=== PATIENT | female | born 1950 | race Caucasian/White ===

== ENCOUNTER → 2017-04-03 | Outpatient (CLI) | payer BC ==
[~2017-04-03] MED LIST: CALCIUM + D 6001 TA1 PO; CENTRUM SILVER1 EAC2 PO; LORTAB 7.5-5001 TAB PO; MOBIC PO; SIMVASTATIN5 MG PO
--- NOTE | ~2017-04-03 | MR104 ---
[facility] A Service of [facility] RADIOLOGY TEXT RESULTS PATIENT: GREG ORO LOCATION: [facility] : 50 UNIT #: [id number] AGE: [address]: Srini Garcia MD SEX: F ORDER DR: [id number] [facility] [address] [place], [place] [address] [id number] O MR#: [id number] Acc #: [id number] NAME: GREG ORO : 1950 SEX: F STUDY DATE/TIME: 04/03/2017 7:06 UNIT: [facility] ROOM: STUDY DESCRIPTION: MR Knee Wo Contrast Rt Attending Physician: Srini Garcia M.D. Referring Physician: Srini Garcia M.D. Ordering Physician: Srini Garcia M.D. Primary Care Physician: Kenney Allen M.D. MRI CENTER REPORT This report is preliminary unless electronic signature is present. EXAM MRI of the right knee without contrast HISTORY 66-year-old female right knee pain, felt a pop last Friday03/28/2017 picking up grandbaby severe pain in knee. COMPARISON MRI of the right knee 11/06/2005 FINDINGS Multiplanar multiecho imaging was performed of the right knee utilizing a high field magnet dedicated protocol. Examination demonstrates early degenerative arthropathy of the knee with developing marginal osteophytes in all 3 compartments. No significant marrow edema. A small knee effusion. No discernible loose body. In the medial compartment there is a full-thickness radial tear at the root attachment posterior horn of the medial meniscus. There is 6 mm of medial extrusion of the medial meniscus as well as diffuse myxoid degeneration within the meniscus. Minimal chondromalacia medial compartment. In the lateral compartment the meniscus unremarkable. Articular cartilage appears intact. In the patellofemoral compartment there is a [id number] grade chondromalacia involving the lateral patellar facet median ridge and medial patellar facet. Trochlear cartilage demonstrates 5-6 mm focus of moderate-grade chondromalacia deep trochlear groove. Anterior and posterior cruciate ligaments appear intact. Collateral ligaments and extensor mechanism unremarkable. There is a small popliteal cyst measuring about 3.5 cm in greatest dimension. IMPRESSION [facility] A Service of [facility] RADIOLOGY TEXT RESULTS PATIENT: GREG ORO LOCATION: [facility] : 50 UNIT #: [id number] AGE: [address]: Srini Garcia MD SEX: F ORDER DR: 1. Full-thickness radial tear root attachment posterior horn of the medial meniscus. 2. Developing tricompartmental degenerative arthropathy of the knee with patellofemoral compartment predominance. Moderate grade chondromalacia noted lateral patellar facet and deep trochlear groove. 3. A small knee effusion and small popliteal cyst. Chondromalacia involving the patellofemoral compartment with moderate-grade chondromalacia lateral patellar facet. Mild chondromalacia medial patellar facet. Dictated by... Braulio Kim M.D. THIS IS AN ELECTRONICALLY VERIFIED REPORT Braulio Kim M.D. at 04/03/2017 5:29 PM ADA/pricila TD: 04/03/2017 13:01 JOB #: [id number] MRI CENTER REPORT Page 1 of 1 COPY
== END | disposition home or self-care (01) ==
LOC: CMRI 06:33
DX: M25.561 Pain in right knee (principal); M79.89 Other specified soft tissue disorders; S83.241A Other tear of medial meniscus, current injury, right knee, initial encounter; M17.11 Unilateral primary osteoarthritis, right knee; M25.461 Effusion, right knee; M71.21 Synovial cyst of popliteal space [Baker], right knee; M22.41 Chondromalacia patellae, right knee
CPT/HCPCS: 73721